=== PATIENT | female | born 1970 | race Caucasian/White ===

== ENCOUNTER 2024-05-22 13:00 | Day surgery (SDC) | payer BC ==
[~2024-05-22 13:00] MED LIST: LIDOCAINE 1% (10MG/ML) FOR IV START INTRADERMA PRN; MIDAZOLAM 2 MG/2 ML VIAL IV PRN; Pre Op ABX Message 1 EACH MISC MISCELLANE ONE; fentaNYL (PF) 50 MCG/ML 2 ML AMP IVP PRN
[2024-05-22] MEDS: ACETAMINOPHEN TAB 500 MG TAB PO PRN (13:10)
[2024-05-22] MEDS: HEPARIN SODIUM,PORCINE 5,000 UNIT/ML 1 ML VIAL SQ PRN (13:14)
[2024-05-22] MEDS: ONDANSETRON 4 MG/2 ML VIAL IVP ONE (13:16)
[2024-05-22] MEDS: LACTATED RINGERS 1,000 ML IV SCH (13:16)
[2024-05-22] MEDS: DEXAMETHASONE SOD PHOSPHATE 4 MG/ML 1 ML VIAL IV ONE (13:16)
[2024-05-22] MEDS: IV FLUID CONTINUATION 1,000 ML IV ONE (13:18)
--- NOTE | 2024-05-22 13:25 | P.GSHP ---
History of Present Illness H&P Date: 05/22/24 Chief Complaint: Right breast cancer 53-year-old female here today for Port-A-Cath placement. Patient to begin neoadjuvant chemotherapy for right-sided breast cancer. She has not had a port previously. Past Medical History Past Medical History: Cancer, Hyperlipidemia, Sleep Apnea/CPAP/BIPAP Additional Past Medical History / Comment(s): breast, uses cpap History of Any Multi-Drug Resistant Organisms: None Reported Past Surgical History: Cholecystectomy, Tubal Ligation Past Anesthesia/Blood Transfusion Reactions: No Reported Reaction Smoking Status: Never smoker - Past Family History Sister(s) Family Medical History: Cancer Additional Family Medical History / Comment(s): breast Brother(s) Family Medical History: Cancer Additional Family Medical History / Comment(s): throat Father Family Medical History: CVA/TIA Mother Family Medical History: CVA/TIA Medications and Allergies Home Medications Medication Instructions Recorded Confirmed Type Atorvastatin [Lipitor] 10 mg PO HS 05/17/24 05/22/24 History Multivitamins, Thera [Multivitamin 1 tab PO DAILY 05/17/24 05/22/24 History (formulary)] Sertraline [Zoloft] 50 mg PO HS 05/17/24 05/22/24 History Allergies Allergy/AdvReac Type Severity Reaction Status Date / Time No Known Allergies Allergy Verified 05/22/24 13:01 Surgical - Exam Vital Signs Temp Pulse Resp BP Pulse Ox 97.6 F 71 18 140/76 96 05/22/24 13:08 05/22/24 13:08 05/22/24 13:08 05/22/24 13:08 05/22/24 13:08 Physical exam: General: Well-developed, well-nourished HEENT: Normocephalic, sclerae nonicteric Abdomen: Nontender, nondistended Extremities: No edema Neuro: Alert and oriented Assessment and Plan (1) Breast cancer, right Narrative/Plan: Will proceed with Port-A-Cath placement at this time. Risks of bleeding, infection, DVT, pneumothorax, catheter malfunction, anesthesia related complications were discussed. The patient understands and wishes to proceed. Current Visit: Yes Status: Acute Code(s): C50.911 - MALIGNANT NEOPLASM OF UNSP SITE OF RIGHT FEMALE BREAST SNOMED Code(s): 046987044
[2024-05-22] MEDS ORDERED: MIDAZOLAM 2 MG/2 ML VIAL ONE (13:27)
[2024-05-22] MEDS ORDERED: fentaNYL (PF) 50 MCG/ML 2 ML AMP ONE (13:27)
[2024-05-22] MEDS ORDERED: PROPOFOL 10 MG/ML 20 ML VIAL IV ONE (13:27)
[2024-05-22] MEDS ORDERED: LIDOCAINE 1% INJ 10MG/ML (20 ML MDV) ONE (13:27)
[2024-05-22] MEDS: SODIUM CHLORIDE 0.9% 50 ML with ceFAZolin 2,000 MG IV ONE (13:32)
[2024-05-22] MEDS: LIDOCAINE 1% INJ 10MG/ML (20 ML MDV) SQ ONE ×2 (13:55)
[2024-05-22] MEDS ORDERED: NALOXONE 0.4 MG/ML 1 ML VIAL IV PRN (14:17)
--- NOTE | 2024-05-22 14:19 | P.OP ---
Date of Procedure: 05/22/24 Procedure(s) Performed: PREOPERATIVE DIAGNOSIS: Right breast cancer POSTOPERATIVE DIAGNOSIS: Same PROCEDURE: Port-A-Cath placement with fluoroscopic and ultrasound guidance SURGEON: Apryl EBL: Minimal ANESTHESIA: General COMPLICATIONS: None OPERATIVE PROCEDURE: Patient was brought and placed on the operative table in the supine position. The patient was placed under general anesthesia at that time. The chest and neck were prepped and draped in usual sterile fashion. The ultrasound probe was used to identify the location of the left internal jugular vein. The skin was localized with lidocaine. The Seldinger needle was advanced into the IJ under ultrasound guidance. The wire was advanced through the needle under fluoroscopic guidance into the superior vena cava. A port pocket was created in the left infraclavicular location. The catheter was tunneled from the wire entrance site to the port pocket. The port was then connected to the catheter. The dilator introducer was threaded over the guidewire. The guidewire and dilator were then removed. The catheter was advanced through the introducer and introducer was then removed. The tip was seen to be in the right atrial junction via fluoroscopy. A picture of the radiograph showing the tip of the catheter was taken. Port was flushed with both saline and a Hep-Lock solution. There was good flow both in and out of the port. The port was sutured in underlying tissues using 3-0 silk sutures. The subcutaneous tissues were reapproximated using 3-0 Vicryl sutures and the skin at both locations using 4-0 Monocryl sutures. Skin glue and sterile dressings then applied. DISPOSITION: Stable to recovery room
[2024-05-22 14:34] VITALS: TEMP 97.3
--- NOTE | 2024-05-22 14:35 | FL ---
EXAMINATION TYPE: FL guided central line placemt DATE OF EXAM: 05/22/2024 2:19 PM COMPARISON: Pre Operative Images if available both CT/MRI or plain film CLINICAL INDICATION: Female, 53 years old with history of PORT INSERTION; TECHNIQUE: FL guided central line placemt, multiple fluoroscopic images provided for procedure. DAP: 0.3313 mGym2 Gycm2 uGym2 cGycm2 or equivalent. FINDINGS: Fluoroscopic imaging for Port-A-Cath insertion no evidence for pneumothorax. Multilevel degeneration changes of the spine. IMPRESSION: 1. No evidence for intraoperative complication. 2. Please see the operative/procedural note for further details. [facility], , 05/22/2024 2:33 PM
--- NOTE | 2024-05-22 14:57 | XR ---
EXAMINATION TYPE: XR chest 1V confirm line plcmt DATE OF EXAM: 05/22/2024 2:34 PM COMPARISON: None CLINICAL INDICATION: Female, 53 years old with history of Check Line; [facility] TECHNIQUE: XR chest 1V confirm line plcmt Frontal view of the chest. FINDINGS: Lungs/Pleura: There is no evidence of pleural effusion, focal consolidation, or pneumothorax. Pulmonary vascularity: Unremarkable. Heart/mediastinum: Cardiomediastinal silhouette is unremarkable. Musculoskeletal: No acute osseous pathology. Other findings: None Lines/Tubes:[id number] projecting over the right hemithorax with distal tip at the cavoatrial junc tion. IMPRESSION: No acute cardiopulmonary disease/process. [facility], , 05/22/2024 2:55 PM
[2024-05-22] MEDS: HYDROmorphone 0.5 MG/0.5 ML SYRINGE IVP PRN (14:59)
[2024-05-22] MEDS: FAMOTIDINE 20 MG/2 ML VIAL IV ONE (15:14)
[2024-05-22] MEDS: diphenhydrAMINE 50 MG/ML 1 ML VIAL IVP STA (15:15)
[2024-05-22 15:47] VITALS: RESP 16
[2024-05-22 16:13] VITALS: BP 122/61; PULSE 70
== END 2024-05-22 16:23 ==
LOC: OR 13:00
PROVIDERS: ATTEND Surgery
DX: C50.911 Malignant neoplasm of unspecified site of right female breast (principal); E78.5 Hyperlipidemia, unspecified; G47.33 Obstructive sleep apnea (adult) (pediatric); F41.9 Anxiety disorder, unspecified; Z90.49 Acquired absence of other specified parts of digestive tract; Z98.51 Tubal ligation status; Z79.899 Other long term (current) drug therapy
CPT/HCPCS: 77001; 36561; C1788; J2250; J1200; J1644; J1100; J2405; J0690; J2003; J3010; J3490; J1642; J2704; J1171

== ENCOUNTER → 2024-05-24 | Outpatient (CLI) | payer BC ==
--- NOTE | 2024-05-24 12:48 | CA ---
Transthoracic Echo Report Name: Ayde Rasmussen Age: 53 Gender: F : 1970 Exam Date: 05/24/2024 09:13 Exam Location: [facility] Ht (in): 64 Wt (lb): 183 Ordering Physician: Inge Alvarez MD Attending/Referring Phys: Gas Leak Inspector Rody Dudley RDCS Procedure CPT: Indications: Z01.818 Cardiac Hx: Technical Quality: Good Contrast 1: Total Dose (mL): Contrast 2: Total Dose (mL): MEASUREMENTS (Male / Female) Normal Values 2D ECHO LV Diastolic Diameter PLAX 4.6 cm 4.2 - 5.9 / 3.9 - 5.3 cm LV Systolic Diameter PLAX 3.2 cm IVS Diastolic Thickness 0.9 cm 0.6 - 1.0 / 0.6 - 0.9 cm LVPW Diastolic Thickness 0.9 cm 0.6 - 1.0 / 0.6 - 0.9 cm LV Relative Wall Thickness 0.4 RV Internal Dim ED PLAX 3.1 cm LA Systolic Diameter LX 3.4 cm 3.0 - 4.0 / 2.7 - 3.8 cm LV Diastolic Volume MOD 4C 88.2 cm??? LV Systolic Volume MOD 4C 44.2 cm??? LV Ejection Fraction MOD 4C 49.8 % LV Cardiac Index MOD 4C 1587.2 cm???/min???m??? LV Diastolic Length 4C 7.8 cm LV Systolic Length 4C 6.7 cm LV Diastolic Volume MOD 2C 52.1 cm??? LV Systolic Volume MOD 2C 22.7 cm??? LV Ejection Fraction MOD 2C 56.4 % LV Cardiac Index MOD 2C 1060.9 cm???/min???m??? LV Diastolic Length 2C 7.8 cm LV Systolic Length 2C 6.5 cm LA Volume 39.5 cm??? 18 - 58 / 22 - 52 cm??? LA Volume Index 20.1 cm???/m??? 16 - 28 cm???/m??? M-MODE Aortic Root Diameter MM 2.8 cm DOPPLER AV Peak Velocity 113.7 cm/s AV Peak Gradient 5.2 mmHg MV Area PHT 3.1 cm??? Mitral E Point Velocity 74.5 cm/s Mitral A Point Velocity 87.4 cm/s Mitral E to A Ratio 0.9 MV Deceleration Time 241.4 ms TR Peak Velocity 199.1 cm/s TR Peak Gradient 15.9 mmHg Right Ventricular Systolic Press 20.9 mmHg FINDINGS Left Ventricle Left ventricular ejection fraction is estimated at 50-55 %. Left ventricular cavity size normal. Left ventricular wall thickness normal. Normal left ventricular wall motion. GLPS average -16.8% Right Ventricle Normal right ventricular size and function. Right ventricular systolic pressure within normal limits. Right Atrium Normal right atrial size. No right atrial thrombus or mass seen. Left Atrium Normal left atrial size. No left atrial thrombus or mass present. Mitral Valve Structurally normal mitral valve. No mitral stenosis, or prolapse.trace to mild mitral regurgitation. Aortic Valve Trileaflet aortic valve. No aortic valve stenosis or regurgitation. Tricuspid Valve Structurally normal tricuspid valve. Mild tricuspid regurgitation. Pulmonic Valve Structurally normal pulmonic valve. Trace pulmonic regurgitation. Pericardium No pericardial effusion. Aorta Normal size aortic root and proximal ascending aorta. CONCLUSIONS 1. Left ventricular systolic function borderline normal, average GLPS is - 16.8% 2. Mild tricuspid regurgitation with trace to mild mitral regurgitation and normal right ventricular systolic pressure Previewed by: Dr. Mari Goncalves MD (Electronically Signed) Final Date: 24 May 2024 12:47
== END | disposition home or self-care (01) ==
LOC: RADECHMAIN 09:04
PROVIDERS: ATTEND Internal Medicine Hematology & Oncology
DX: Z01.818 Encounter for other preprocedural examination (principal); I08.1 Rheumatic disorders of both mitral and tricuspid valves
CPT/HCPCS: 93306

== ENCOUNTER → 2024-07-31 | Outpatient (CLI) | payer BC ==
--- NOTE | 2024-07-31 19:03 | CA ---
Transthoracic Echo Report Name: Ayde Rasmussen Age: 53 Gender: F : 1970 Exam Date: 07/31/2024 16:30 Exam Location: [facility] Ht (in): 64 Wt (lb): 185 Ordering Physician: Inge Alvarez MD Attending/Referring Phys: Animal Breeder Rody Dudley RDCS Procedure CPT: Indications: Z01.818 ENCOUNTER FOR OTHER PREPROCEDURAL EXAMINAT Cardiac Hx: Technical Quality: Good Contrast 1: Total Dose (mL): Contrast 2: Total Dose (mL): MEASUREMENTS (Male / Female) Normal Values 2D ECHO LV Diastolic Diameter PLAX 4.5 cm 4.2 - 5.9 / 3.9 - 5.3 cm LV Systolic Diameter PLAX 2.7 cm IVS Diastolic Thickness 1.1 cm 0.6 - 1.0 / 0.6 - 0.9 cm LVPW Diastolic Thickness 1.0 cm 0.6 - 1.0 / 0.6 - 0.9 cm LV Relative Wall Thickness 0.4 RV Internal Dim ED PLAX 3.3 cm LA Systolic Diameter LX 3.6 cm 3.0 - 4.0 / 2.7 - 3.8 cm LV Diastolic Volume MOD 4C 81.4 cm??? LV Systolic Volume MOD 4C 33.0 cm??? LV Ejection Fraction MOD 4C 59.4 % LV Cardiac Index MOD 4C 2004.8 cm???/min???m??? LV Diastolic Length 4C 7.5 cm LV Systolic Length 4C 6.2 cm LV Diastolic Volume MOD 2C 52.5 cm??? LV Systolic Volume MOD 2C 26.0 cm??? LV Ejection Fraction MOD 2C 50.5 % LV Cardiac Index MOD 2C 1100.8 cm???/min???m??? LV Diastolic Length 2C 7.2 cm LV Systolic Length 2C 6.3 cm M-MODE Aortic Root Diameter MM 3.0 cm LA Systolic Diameter MM 2.3 cm LA Ao Ratio MM 0.8 DOPPLER AV Peak Velocity 112.9 cm/s AV Peak Gradient 5.1 mmHg Mitral E Point Velocity 75.6 cm/s Mitral A Point Velocity 85.3 cm/s Mitral E to A Ratio 0.9 MV Deceleration Time 201.8 ms MV E' Velocity 7.0 cm/s Mitral E to MV E' Ratio 10.8 TR Peak Velocity 216.4 cm/s TR Peak Gradient 18.7 mmHg Right Ventricular Systolic Press 28.7 mmHg FINDINGS Left Ventricle Left ventricular ejection fraction is estimated at 55-60 %. Left ventricular cavity size normal. Mildly increased septal wall thickness. No obvious regional wall motion abnormalities. Decrease longitudinal strain Right Ventricle Mild right ventricular dilatation. Right ventricular systolic pressure within normal limits. Right Atrium Normal right atrial size. No right atrial thrombus or mass seen. Left Atrium Normal left atrial size. No left atrial thrombus or mass present. Mitral Valve Structurally normal mitral valve. No mitral stenosis, regurgitation or prolapse. Aortic Valve Trileaflet aortic valve. No aortic valve stenosis or regurgitation. Tricuspid Valve Structurally normal tricuspid valve. Mild tricuspid regurgitation. Pulmonic Valve Structurally normal pulmonic valve. Trace pulmonic regurgitation. Pericardium Small pericardial effusion by LV Aorta Normal size aortic root and proximal ascending aorta. CONCLUSIONS Diagnosis. Prechemotherapy assessment LV function assessment Normal LV size with a left ventricular systolic function of 55% Mild septal hypokinesis Mildly thickened pericardium with mild, posterior pericardial effusion Previewed by: Dr. Geo Sr MD (Electronically Signed) Final Date: 31 Jul 2024 19:02
== END | disposition home or self-care (01) ==
LOC: RADECHMAIN 16:00
PROVIDERS: ATTEND Internal Medicine Hematology & Oncology
DX: Z01.818 Encounter for other preprocedural examination (principal); E78.5 Hyperlipidemia, unspecified; C50.411 Malignant neoplasm of upper-outer quadrant of right female breast; R51.9 Headache, unspecified; F32.A Depression, unspecified; I31.39 Other pericardial effusion (noninflammatory); Z71.3 Dietary counseling and surveillance
CPT/HCPCS: 93306